=== PATIENT | female | born 1975 | race Caucasian/White ===

== ENCOUNTER 2017-02-16 08:24 | Emergency (ER) | payer OTHER, MEDICAID ==
[~2017-02-16] VITALS: Ht 170.2 cm; Wt 116.3 kg
[~2017-02-16 08:24] MED LIST: ALBU25PO2 INH; ALPR1TAB2 PO; BUPR1FIL3 PO; BUTA1CAP57 PO; CARI350T PO; CARI3CAP PO; CELE200C PO; CIPR500T87 PO; DIAZ10TA4 PO; DICY10CA3 PO; DIPH12.521 PO; DIPH25CA61 PO; DOXE10CA PO; DOXE75CA PO; DULO30CA2 PO; ENOX30SY4 SQ; ESOM40CA PO; FENO145T32 PO; FERR55TA PO; FLUO10CA13 PO; FLUO40CA9 PO; GABA100C PO; LISI-167 PO; LOSA25TA5 PO; LOVA20TA2 PO; MECL-76 PO; MECL25TA4 PO; MELO-190 PO; METF500T4 PO; METH5TAB IVPush; MONT10TA6 PO; OLAN10TA3 PO; ONDA8TAB9 PO; PRAM0.255 PO; RANI150T4 PO; TRAZ100T15 PO; WARF7.5T6 PO; ZIPR60CA2 PO; ZIPR80CA2 PO; ZIPR80CA3 PO; oxygen INH
[2017-02-16] MEDS ORDERED: SODIUM CHLORIDE FLUSH 10ML SYR IVF ONE (09:00)
[2017-02-16] MEDS ORDERED: SODIUM CHLORIDE 0.9% 1,000ML IVBOLUS ONE (09:00)
[2017-02-16] MEDS ORDERED: QUET100T4 PO (09:03)
[2017-02-16] MEDS ORDERED: CLON-365 PO (09:03)
[2017-02-16 09:35] LABS: ASPARTATE AMINO TRANSFERASE 23 U/L (15-37); BLOOD UREA NITROGEN 19 mg/dL (7-18); C-REACTIVE PROTEIN, QUANT 0.79 mg/dL (0.02-0.49)
[2017-02-16] MEDS ORDERED: ONDANSETRON 2MG/ML, 2ML ONE (11:11)
[2017-02-16] MEDS ORDERED: ONDANSETRON 2MG/ML, 2ML IVPush ONE (11:30)
[2017-02-16 12:23] LABS: DAU SCREEN DISCLAIMER
[2017-02-16 13:12] VITALS: BP 127/85
== END 2017-02-16 13:14 | disposition home or self-care (01) ==
LOC: ED 09:38
DX: L03.113 Cellulitis of right upper limb (principal); G62.9 Polyneuropathy, unspecified; I10 Essential (primary) hypertension; E11.9 Type 2 diabetes mellitus without complications; J44.9 Chronic obstructive pulmonary disease, unspecified; E78.5 Hyperlipidemia, unspecified; E78.00 Pure hypercholesterolemia, unspecified; Z88.1 Allergy status to other antibiotic agents; Z88.8 Allergy status to other drugs, medicaments and biological substances; F17.200 Nicotine dependence, unspecified, uncomplicated
CPT/HCPCS: 36415; 71010; 80053; 80307; 81003; 82550; 82607; 83605; 83735; 84145; 84443; 85025; 85651; 86140; 93005; 96361; 96374; 99285; J2405; J7030

== ENCOUNTER 2017-03-01 15:17 | Emergency (ER) | payer OTHER, MEDICAID ==
[~2017-03-01] VITALS: Ht 170.2 cm; Wt 114.4 kg
[~2017-03-01 15:17] MED LIST changes: +CLON-365 PO; +QUET100T4 PO
[2017-03-01] MEDS ORDERED: SODIUM CHLORIDE 0.9% 1,000 ML IV ONE (15:41)
[2017-03-01] MEDS ORDERED: SODIUM CHLORIDE FLUSH 10ML SYR IVF ONE (16:00)
[2017-03-01 16:30] LABS: BLOOD UREA NITROGEN 17 mg/dL (7-18)
[2017-03-01 16:35] LABS: IS PT STATUS REG ER OR PRE ER? YES
[2017-03-01] MEDS ORDERED: OXYcodone/APAP 10/325MG TABLET PO ONE (17:00)
[2017-03-01] MEDS ORDERED: KETOROLAC 60 MG/2 ML IVPush ONE (17:00)
[2017-03-01] MEDS ORDERED: OXYcodone/APAP 10/325MG TABLET ONE (18:32)
[2017-03-01] MEDS ORDERED: KETOROLAC 30 MG/1 ML ONE ×2 (18:32→18:39)
[2017-03-01] MEDS ORDERED: HYDROmorphone 1 MG/ML, 1ML IM PRN (19:00)
[2017-03-01] MEDS ORDERED: KETOROLAC 30 MG/1 ML IM ONE (19:00)
[2017-03-01 20:05] VITALS: BP 100/61
== END 2017-03-01 20:08 | disposition home or self-care (01) ==
LOC: ED 19:30
DX: R09.1 Pleurisy (principal); R11.2 Nausea with vomiting, unspecified; R53.1 Weakness; J44.9 Chronic obstructive pulmonary disease, unspecified; E78.5 Hyperlipidemia, unspecified; E11.9 Type 2 diabetes mellitus without complications; E78.00 Pure hypercholesterolemia, unspecified; F17.200 Nicotine dependence, unspecified, uncomplicated
CPT/HCPCS: 36415; 71010; 80048; 82040; 83880; 84484; 84703; 85025; 85379; 93005; 96372; 96374; 99285; J1885

== ENCOUNTER 2017-04-02 13:21 | Emergency (ER) | payer OTHER, MEDICAID ==
[~2017-04-02] VITALS: Ht 170.2 cm; Wt 114.3 kg
[2017-04-02] MEDS ORDERED: SODIUM CHLORIDE 0.9% 1,000 ML IV ONE (14:16)
[2017-04-02] MEDS ORDERED: ONDANSETRON 2MG/ML, 2ML ONE (14:21)
[2017-04-02] MEDS ORDERED: LORazepam 2 MG/ML, 1ML ONE (14:22)
[2017-04-02] MEDS ORDERED: SODIUM CHLORIDE FLUSH 10ML SYR IVF ONE (14:30)
[2017-04-02] MEDS ORDERED: LORazepam 2 MG/ML, 1ML IVPush ONE (14:30)
[2017-04-02] MEDS ORDERED: SODIUM CHLORIDE 0.9% 1,000ML IVBOLUS ONE (14:30)
[2017-04-02] MEDS ORDERED: ONDANSETRON 2MG/ML, 2ML IVPush ONE (14:30)
[2017-04-02 15:01] LABS: ASPARTATE AMINO TRANSFERASE 16 U/L (15-37); BLOOD UREA NITROGEN 18 mg/dL (7-18)
[2017-04-02 16:06] VITALS: BP 102/60
== END 2017-04-02 16:09 | disposition home or self-care (01) ==
LOC: ED 15:40
DX: N28.9 Disorder of kidney and ureter, unspecified (principal); I10 Essential (primary) hypertension; J44.9 Chronic obstructive pulmonary disease, unspecified; E78.00 Pure hypercholesterolemia, unspecified; E11.9 Type 2 diabetes mellitus without complications; J45.909 Unspecified asthma, uncomplicated; E66.9 Obesity, unspecified; F17.200 Nicotine dependence, unspecified, uncomplicated; Z90.49 Acquired absence of other specified parts of digestive tract; Z90.710 Acquired absence of both cervix and uterus; Z86.718 Personal history of other venous thrombosis and embolism; Z88.1 Allergy status to other antibiotic agents; Z88.8 Allergy status to other drugs, medicaments and biological substances
CPT/HCPCS: 36415; 71010; 80053; 81003; 83605; 84145; 85025; 96361; 96374; 96375; 99285; J2060; J2405; J7030

== ENCOUNTER → 2017-04-30 | Outpatient (CLI) | payer OTHER, MEDICAID ==
[~2017-04-30] VITALS: Ht 170.2 cm; Wt 114.0 kg
[~2017-04-30] MED LIST changes: +DESMOPRESSIN IVPB ONE; +MAGN400T36 PO; +SODIUM CHLORIDE 0.9% IVPB ONE
[2017-04-30 15:56] VITALS: BP 123/80
[2017-04-30 16:27] LABS: DAU SCREEN DISCLAIMER
[2017-04-30 16:49] LABS: HEMATOCRIT 39.1 % (34.6-47.8); HEMOGLOBIN 12.9 g/dL (11.7-16.4); WHITE BLOOD COUNT 7.2 x10^3/uL (3.4-10)
[2017-04-30 17:07] LABS: ASPARTATE AMINO TRANSFERASE 15 U/L (15-37); BLOOD UREA NITROGEN 15 mg/dL (7-18)
== END ==
LOC: SDC 08:00 → OR 15:07 → EDSTATUS 17:00
PROVIDERS: ATTEND Orthopaedic Surgery
DX: Z01.812 Encounter for preprocedural laboratory examination (principal); G56.03 Carpal tunnel syndrome, bilateral upper limbs; Z53.9 Procedure and treatment not carried out, unspecified reason; M65.331 Trigger finger, right middle finger; M65.332 Trigger finger, left middle finger
CPT/HCPCS: 36415; 80053; 80307; 85025; 85610; 85730; J2597

== ENCOUNTER 2017-06-12 01:08 | Emergency (ER) | payer MEDICAID, OTHER ==
[~2017-06-12] VITALS: Ht 170.2 cm; Wt 116.8 kg
[~2017-06-12 01:08] MED LIST changes: -DESMOPRESSIN IVPB ONE; -MELO-190 PO; +MELO7.5T31 PO; -SODIUM CHLORIDE 0.9% IVPB ONE
[2017-06-12 01:09] VITALS: BP 151/82
[2017-06-12] MEDS ORDERED: LIDOCAINE 1%, 20ML SQ ONE (02:00)
[2017-06-12] MEDS ORDERED: LIDOCAINE 1%, 20ML ONE (02:03)
== END 2017-06-12 02:41 | disposition home or self-care (01) ==
LOC: ED 02:03
DX: L02.414 Cutaneous abscess of left upper limb (principal); J44.9 Chronic obstructive pulmonary disease, unspecified; E78.5 Hyperlipidemia, unspecified; E11.9 Type 2 diabetes mellitus without complications; I10 Essential (primary) hypertension; E78.00 Pure hypercholesterolemia, unspecified; Z86.718 Personal history of other venous thrombosis and embolism; Z86.711 Personal history of pulmonary embolism; Z90.710 Acquired absence of both cervix and uterus; Z90.49 Acquired absence of other specified parts of digestive tract; Z88.8 Allergy status to other drugs, medicaments and biological substances; Z88.0 Allergy status to penicillin
CPT/HCPCS: 10060; 99283

== ENCOUNTER 2017-06-14 17:59 | Emergency (ER) | payer OTHER ==
[~2017-06-14] VITALS: Ht 170.2 cm; Wt 119.0 kg
[2017-06-14 18:02] VITALS: BP 125/79
[2017-06-14] MEDS ORDERED: HYDROcodone/APAP 5/325 TABLET ONE (18:27)
[2017-06-14] MEDS ORDERED: HYDROcodone/APAP 5/325 TABLET PO ONE (18:30)
== END 2017-06-14 18:48 | disposition home or self-care (01) ==
LOC: ED 18:42
DX: Z48.01 Encounter for change or removal of surgical wound dressing (principal); J44.9 Chronic obstructive pulmonary disease, unspecified; F31.9 Bipolar disorder, unspecified; I10 Essential (primary) hypertension; E78.5 Hyperlipidemia, unspecified; E78.00 Pure hypercholesterolemia, unspecified; E11.9 Type 2 diabetes mellitus without complications; Z86.718 Personal history of other venous thrombosis and embolism; Z88.0 Allergy status to penicillin; Z88.1 Allergy status to other antibiotic agents; Z88.8 Allergy status to other drugs, medicaments and biological substances; Z88.5 Allergy status to narcotic agent
CPT/HCPCS: 99283

== ENCOUNTER 2017-07-24 17:08 | Emergency (ER) | payer OTHER, MEDICAID ==
[~2017-07-24] VITALS: Ht 170.2 cm; Wt 118.0 kg
[2017-07-24] MEDS ORDERED: ASPIRIN 81 MG TABLET CHEW PO ONE (17:30)
[2017-07-24] MEDS ORDERED: SODIUM CHLORIDE FLUSH 10ML SYR IVF ONE (17:30)
[2017-07-24 17:50] LABS: HEMATOCRIT 36.4 % (34.6-47.8); WHITE BLOOD COUNT 6.3 x10^3/uL (3.4-10)
[2017-07-24 18:03] LABS: BLOOD UREA NITROGEN 14 mg/dL (7-18)
[2017-07-24 18:09] LABS: IS PT STATUS REG ER OR PRE ER? YES
[2017-07-24] MEDS ORDERED: MONT10TA9 PO (18:25)
[2017-07-24] MEDS ORDERED: CLON-365 PO (18:25)
[2017-07-24] MEDS ORDERED: RANI150T4 PO (18:25)
[2017-07-24] MEDS ORDERED: QUET200T PO (18:25)
[2017-07-24] MEDS ORDERED: QUET100T PO (18:25)
[2017-07-24] MEDS ORDERED: BREX2TAB PO (18:25)
[2017-07-24] MEDS ORDERED: DIPH25CA61 PO (18:25)
[2017-07-24] MEDS ORDERED: ALBU8.5H8 INH (18:25)
[2017-07-24] MEDS ORDERED: DICY10CA3 PO (18:25)
[2017-07-24] MEDS ORDERED: LISI-167 PO (18:25)
[2017-07-24] MEDS ORDERED: POTA99TA2 PO (18:25)
[2017-07-24] MEDS ORDERED: GABA600T2 PO (18:25)
[2017-07-24] MEDS ORDERED: MAGN250T8 PO (18:25)
[2017-07-24] MEDS ORDERED: ESOM40CA PO (18:25)
[2017-07-24] MEDS ORDERED: ONDA4TAB10 PO (18:25)
[2017-07-24] MEDS ORDERED: LOVA20TA2 PO (18:25)
[2017-07-24] MEDS ORDERED: PRAM0.255 PO (18:25)
[2017-07-24 19:26] VITALS: BP 120/76
== END 2017-07-24 19:28 | disposition home or self-care (01) ==
LOC: ED 17:38
DX: R07.89 Other chest pain (principal); R06.02 Shortness of breath; E11.9 Type 2 diabetes mellitus without complications; J44.9 Chronic obstructive pulmonary disease, unspecified; I10 Essential (primary) hypertension; F31.9 Bipolar disorder, unspecified; E66.9 Obesity, unspecified; E78.00 Pure hypercholesterolemia, unspecified
CPT/HCPCS: 36415; 71010; 80048; 82040; 84484; 85025; 93005; 99285

== ENCOUNTER 2017-08-14 15:26 | Inpatient (IN) | payer OTHER, MEDICAID ==
[~2017-08-14] VITALS: Ht 170.2 cm; Wt 120.9 kg
[~2017-08-14 15:26] MED LIST changes: +ALBU8.5H8 INH; +BREX2TAB PO; +GABA600T2 PO; +MAGN250T8 PO; +MONT10TA9 PO; +ONDA4TAB10 PO; +POTA99TA2 PO; +QUET100T PO; +QUET200T PO
[2017-08-14] MEDS ORDERED: CHARCOAL/SORBITOL 50 GM/240 ML ONE (15:39)
[2017-08-14] MEDS ORDERED: CHARCOAL/SORBITOL 50 GM/240 ML PO ONE (16:00)
[2017-08-14 16:14] LABS: HEMATOCRIT 40.9 % (34.6-47.8); HEMOGLOBIN 13.6 g/dL (11.7-16.4); WHITE BLOOD COUNT 5.3 x10^3/uL (3.4-10)
[2017-08-14 16:20] LABS: BLOOD UREA NITROGEN 20 mg/dL (7-18)
[2017-08-14 16:23] LABS: ASPARTATE AMINO TRANSFERASE 13 U/L (15-37)
[2017-08-14] MEDS ORDERED: FENO48TA5 PO (16:23)
[2017-08-14 16:24] LABS: ACETAMINOPHEN < 2 mcg/mL (10-30)
[2017-08-14] MEDS ORDERED: TRAZ100T15 PO (16:26)
[2017-08-14] MEDS ORDERED: TIOT4MIS5 INH (16:28)
[2017-08-14] MEDS ORDERED: ALBU18HF INH (16:29)
[2017-08-14] MEDS ORDERED: BUDE10.2 INH (16:30)
[2017-08-14] MEDS ORDERED: ONDANSETRON ODT 4 MG ONE (17:53)
[2017-08-14] MEDS ORDERED: HEPARIN 5,000 UNITS/ML, 1ML SQ SCH (18:00)
[2017-08-14] MEDS ORDERED: ONDANSETRON ODT 4 MG PO ONE (18:00)
[2017-08-14 18:24] LABS: IS PT STATUS REG ER OR PRE ER? YES
[2017-08-14] MEDS ORDERED: PRAMIPEXOLE 0.25MG TABLET PO PRN (19:00)
[2017-08-14] MEDS ORDERED: ONDANSETRON 0.8 MG/ML ORAL SOL PO SCH (19:00)
[2017-08-14] MEDS ORDERED: ALBUTEROL SULFATE 2.5 MG/3 ML HHN PRN ×2 (20:00)
[2017-08-14] MEDS: IPRATROPIUM 0.5 MG/2.5 ML INHA HHN SCH (20:00)
[2017-08-14] MEDS ORDERED: TEMPLATE NON-FORMULARY MED. (Ranitidine Hcl** 150 MG) PO SCH (21:00)
[2017-08-14] MEDS ORDERED: ALBUTEROL/IPRATROPIUM 2.5MG/0.5MG, 3 ML NPPB PRN (21:30)
[2017-08-14] MEDS: SODIUM CHLORIDE 0.9% 1,000 ML IV SCH (21:38)
[2017-08-14] MEDS: FAMOTIDINE 20 MG TABLET PO SCH (21:39)
[2017-08-14] MEDS: PANTOPROZOLE 40MG TABLET PO SCH (21:39)
[2017-08-14] MEDS: LOVASTATIN 40 MG TABLET PO SCH (21:40)
[2017-08-14] MEDS: ACETAMINOPHEN 325 MG TABLET PO PRN (21:40)
[2017-08-14 21:47] VITALS: BP 128/85
[2017-08-14 23:22] LABS: IS PT STATUS REG ER OR PRE ER? NO
[2017-08-15] MEDS: IPRATROPIUM 0.5 MG/2.5 ML INHA HHN SCH ×2 (02:00→08:30)
[2017-08-15 02:10] VITALS: BP 110/70
[2017-08-15] MEDS: ONDANSETRON ODT 4 MG PO SCH ×4 (04:10→23:16)
[2017-08-15 04:14] LABS: DAU SCREEN DISCLAIMER
[2017-08-15] MEDS: SODIUM CHLORIDE 0.9% 1,000 ML IV SCH (05:53)
[2017-08-15 06:04] LABS: HEMATOCRIT 34.9 % (34.6-47.8); HEMOGLOBIN 11.9 g/dL (11.7-16.4); WHITE BLOOD COUNT 5.2 x10^3/uL (3.4-10)
[2017-08-15 06:11] LABS: BLOOD UREA NITROGEN 23 mg/dL (7-18)
[2017-08-15 06:27] LABS: DIFF TOTAL CELLS COUNTED 100 CELL DIFF
[2017-08-15 06:28] LABS: VERIFY COUNTS? YES
[2017-08-15 06:33] VITALS: BP 109/67
[2017-08-15] MEDS: NICOTINE 21 MG/24 HR PATCH.TD24 TD SCH (09:00)
[2017-08-15] MEDS ORDERED: FENOFIBRATE 54 MG TABLET PO SCH (09:00)
[2017-08-15] MEDS: FLUTICASONE/VILANTEROL 200-25MCG/INH INH SCH (09:21)
[2017-08-15] MEDS: FAMOTIDINE 20 MG TABLET PO SCH ×2 (09:22→20:23)
[2017-08-15] MEDS: MONTELUKAST 10 MG TABLET PO SCH (09:22)
[2017-08-15] MEDS: IBUPROFEN 200 MG TABLET PO PRN (09:22)
[2017-08-15] MEDS: PANTOPROZOLE 40MG TABLET PO SCH ×2 (09:22→17:15)
[2017-08-15] MEDS: MAGNESIUM OXIDE 400 MG TABLET PO SCH (09:22)
[2017-08-15 11:32] LABS: IS PT STATUS REG ER OR PRE ER? NO
[2017-08-15 12:07] VITALS: BP 99/61
[2017-08-15] MEDS ORDERED: NAPROXEN 250 MG TABLET PO ONE (15:00)
[2017-08-15 18:58] VITALS: BP 115/75
[2017-08-15] MEDS: FENOFIBRATE 54 MG TABLET PO SCH (20:23)
[2017-08-15] MEDS: LOVASTATIN 40 MG TABLET PO SCH (20:23)
[2017-08-15] MEDS: ACETAMINOPHEN 325 MG TABLET PO PRN (21:24)
[2017-08-15] MEDS: GABAPENTIN 300 MG CAPSULE PO SCH (21:24)
[2017-08-16 01:43] VITALS: BP 107/71
[2017-08-16 05:34] LABS: HEMATOCRIT 36.4 % (34.6-47.8); HEMOGLOBIN 12.1 g/dL (11.7-16.4); WHITE BLOOD COUNT 5.6 x10^3/uL (3.4-10)
[2017-08-16 05:44] LABS: ASPARTATE AMINO TRANSFERASE 9 U/L (15-37); BLOOD UREA NITROGEN 19 mg/dL (7-18)
[2017-08-16 06:30] VITALS: BP 107/69
[2017-08-16] MEDS ORDERED: IPRATROPIUM 0.5 MG/2.5 ML INHA HHN SCH (08:00)
[2017-08-16] MEDS: NICOTINE 21 MG/24 HR PATCH.TD24 TD SCH (09:00)
[2017-08-16] MEDS: MONTELUKAST 10 MG TABLET PO SCH (09:24)
[2017-08-16] MEDS: GABAPENTIN 300 MG CAPSULE PO SCH ×3 (09:24→20:26)
[2017-08-16] MEDS: FAMOTIDINE 20 MG TABLET PO SCH ×2 (09:24→20:26)
[2017-08-16] MEDS: FLUTICASONE/VILANTEROL 200-25MCG/INH INH SCH (09:24)
[2017-08-16] MEDS: MAGNESIUM OXIDE 400 MG TABLET PO SCH (09:24)
[2017-08-16] MEDS: PANTOPROZOLE 40MG TABLET PO SCH ×2 (09:24→16:26)
[2017-08-16] MEDS: ACETAMINOPHEN 325 MG TABLET PO PRN ×2 (09:24→20:26)
[2017-08-16] MEDS: ONDANSETRON ODT 4 MG PO SCH ×3 (09:25→16:26)
[2017-08-16 12:05] VITALS: BP 113/76
[2017-08-16 19:29] VITALS: BP 109/73
[2017-08-16] MEDS: FENOFIBRATE 54 MG TABLET PO SCH (20:26)
[2017-08-16] MEDS: LOVASTATIN 40 MG TABLET PO SCH (20:26)
[2017-08-16 23:33] VITALS: BP 103/69
[2017-08-17] MEDS: ONDANSETRON ODT 4 MG PO SCH ×4 (00:36→23:57)
[2017-08-17 03:11] VITALS: BP 101/67
[2017-08-17 07:25] VITALS: BP 105/66
[2017-08-17] MEDS: FLUTICASONE/VILANTEROL 200-25MCG/INH INH SCH (08:27)
[2017-08-17] MEDS: MAGNESIUM OXIDE 400 MG TABLET PO SCH (08:27)
[2017-08-17] MEDS: GABAPENTIN 300 MG CAPSULE PO SCH ×3 (08:27→19:59)
[2017-08-17] MEDS: FAMOTIDINE 20 MG TABLET PO SCH ×2 (08:27→19:58)
[2017-08-17] MEDS: MONTELUKAST 10 MG TABLET PO SCH (08:27)
[2017-08-17] MEDS: PANTOPROZOLE 40MG TABLET PO SCH ×2 (08:27→16:01)
[2017-08-17] MEDS: NICOTINE 21 MG/24 HR PATCH.TD24 TD SCH ×2 (10:57→16:00)
[2017-08-17 13:45] VITALS: BP 111/75
[2017-08-17 19:00] VITALS: BP 116/79
[2017-08-17] MEDS: LOVASTATIN 40 MG TABLET PO SCH (19:58)
[2017-08-17] MEDS: ACETAMINOPHEN 325 MG TABLET PO PRN (19:59)
[2017-08-17] MEDS: FENOFIBRATE 54 MG TABLET PO SCH (19:59)
[2017-08-17] MEDS: IBUPROFEN 200 MG TABLET PO PRN (23:56)
[2017-08-18 00:04] VITALS: BP 117/78
[2017-08-18] MEDS: ACETAMINOPHEN 325 MG TABLET PO PRN ×2 (05:16→12:36)
[2017-08-18] MEDS: ONDANSETRON ODT 4 MG PO SCH ×2 (05:17→17:14)
[2017-08-18 06:28] VITALS: BP 119/74
[2017-08-18] MEDS: NICOTINE 21 MG/24 HR PATCH.TD24 TD SCH (08:45)
[2017-08-18] MEDS: MONTELUKAST 10 MG TABLET PO SCH (08:49)
[2017-08-18] MEDS: IBUPROFEN 200 MG TABLET PO PRN (08:49)
[2017-08-18] MEDS: GABAPENTIN 300 MG CAPSULE PO SCH ×2 (08:50→17:14)
[2017-08-18] MEDS: FAMOTIDINE 20 MG TABLET PO SCH (08:50)
[2017-08-18] MEDS: MAGNESIUM OXIDE 400 MG TABLET PO SCH (08:51)
[2017-08-18] MEDS: FLUTICASONE/VILANTEROL 200-25MCG/INH INH SCH (08:52)
[2017-08-18] MEDS: PANTOPROZOLE 40MG TABLET PO SCH ×2 (09:00→17:14)
[2017-08-18] MEDS ORDERED: GLYCERIN ADULT SUPP PR ONE (09:30)
[2017-08-18] MEDS ORDERED: DOCUSATE 50 MG/5 ML, 10ML UDC PO PRN (13:00)
[2017-08-18 14:01] VITALS: BP 139/89
== END 2017-08-18 17:49 | DRG 918 ==
LOC: ED 15:33 → EDIP 17:07 → OBSVTOIN 17:57 → 4EST 19:26
PROVIDERS: ADMIT Internal Medicine; ATTEND Internal Medicine
DX: T43.592A Poisoning by other antipsychotics and neuroleptics, intentional self-harm, initial encounter (principal); D68.0 Von Willebrand disease; E11.40 Type 2 diabetes mellitus with diabetic neuropathy, unspecified; F31.9 Bipolar disorder, unspecified; F17.210 Nicotine dependence, cigarettes, uncomplicated; G89.29 Other chronic pain; K21.9 Gastro-esophageal reflux disease without esophagitis; E78.5 Hyperlipidemia, unspecified; E78.00 Pure hypercholesterolemia, unspecified; F12.90 Cannabis use, unspecified, uncomplicated; M54.12 Radiculopathy, cervical region; M54.9 Dorsalgia, unspecified; R00.0 Tachycardia, unspecified; F41.9 Anxiety disorder, unspecified; G43.909 Migraine, unspecified, not intractable, without status migrainosus; I10 Essential (primary) hypertension; J44.9 Chronic obstructive pulmonary disease, unspecified; Z80.0 Family history of malignant neoplasm of digestive organs; Z81.8 Family history of other mental and behavioral disorders; Z82.49 Family history of ischemic heart disease and other diseases of the circulatory system; Z86.711 Personal history of pulmonary embolism; Z87.442 Personal history of urinary calculi; Z90.710 Acquired absence of both cervix and uterus; Z90.89 Acquired absence of other organs; Z88.1 Allergy status to other antibiotic agents; Z88.5 Allergy status to narcotic agent; Z88.8 Allergy status to other drugs, medicaments and biological substances; Z79.899 Other long term (current) drug therapy; Z91.5 Personal history of self-harm; T42.4X2A Poisoning by benzodiazepines, intentional self-harm, initial encounter; T43.212A Poisoning by selective serotonin and norepinephrine reuptake inhibitors, intentional self-harm, initial encounter
CPT/HCPCS: 36415; 71010; 80048; 80053; 80307; 80329; 83036; 83735; 84100; 84443; 84484; 85025; 85379; 85610; 85730; 93005; 94640; 99285; J1644; J7613; J7644; Q0162; G0378; G0479; G0480; J7030

== ENCOUNTER 2018-02-17 11:48 | Emergency (ER) | payer OTHER, MEDICAID ==
[~2018-02-17] VITALS: Ht 170.2 cm; Wt 116.1 kg
[~2018-02-17 11:48] MED LIST changes: +ALBU18HF INH; +BUDE10.2 INH; +FENO48TA5 PO; -METH5TAB IVPush; +TIOT4MIS5 INH; +WARF7.5T46 PO; -WARF7.5T6 PO; +[UNRECOGNIZED DRUG - CODE] IVPush
[2018-02-17] MEDS ORDERED: OMEP10CA4 PO (13:32)
[2018-02-17] MEDS ORDERED: CLON1TAB PO (13:32)
[2018-02-17] MEDS ORDERED: QUET400T4 PO (13:33)
[2018-02-17] MEDS ORDERED: TRAZ100T15 PO (13:33)
[2018-02-17] MEDS ORDERED: ONDA4TAB10 PO (13:41)
[2018-02-17] MEDS ORDERED: ALBU8.5H8 INH (13:42)
[2018-02-17] MEDS ORDERED: KETOROLAC 30 MG/1 ML IM ONE (14:00)
[2018-02-17 14:12] LABS: MEAN CORPUSCULAR HEMOGLOBIN 28.3 pg (27.0-34.8); MEAN CORPUSCULAR HGB CONC 33.3 g/dL (32.4-35.8); MEAN CORPUSCULAR VOLUME 84.9 fL (80-100); MEAN PLATELET VOLUME 8.4 fL (7.4-10.4); PLATELET COUNT 322 x10^3/uL (130-400); RED BLOOD COUNT 4.52 x10^6/uL (3.82-5.3)
[2018-02-17] MEDS ORDERED: KETOROLAC 30 MG/1 ML ONE (14:17)
[2018-02-17 14:22] LABS: ALBUMIN 3.9 g/dL (3.4-5.0); ANION GAP 7 mmol/L (5-15); CALCIUM 8.7 mg/dL (8.5-10.1); CHLORIDE 107 mmol/L (98-107)
[2018-02-17 14:25] LABS: ALANINE AMINOTRANSFERASE 33 U/L (12-78); ALKALINE PHOSPHATASE 82 U/L (45-117); BILIRUBIN,TOTAL 0.3 mg/dL (0.2-1.0); CREATININE 0.91 mg/dL (0.55-1.02); TOTAL PROTEIN 7.1 g/dL (6.4-8.2)
[2018-02-17 14:32] LABS: MICROSCOPIC NOT IND
[2018-02-17 14:34] LABS: CULTURE INDICATED? NO
[2018-02-17 14:43] LABS: MD YES
[2018-02-17 14:45] LABS: EOS#(MANUAL) 0.06 x10^3/uL (0.0-0.4); EOS% (MANUAL) 1 % (1-7); LYMPH#(MANUAL) 2.17 x10^3/uL (1-3.4); LYMPHS% (MANUAL) 35 % (22-44); MONOS#(MANUAL) 0.19 x10^3/uL (0.3-2.7); MONOS% (MANUAL) 3 % (2-9); SEG#(MANUAL) 3.78 x10^3/uL (1.8-6.8); SEGS% (MANUAL) 61 % (42-75)
[2018-02-17 14:46] LABS: <PLATELET ESTIMATE> ADEQUATE; <PLT MORPHOLOGY> NORMAL PLT MORPH; <RBC MORPHOLOGY> NORMAL
[2018-02-17 16:02] VITALS: BP 107/74
== END 2018-02-17 16:04 | disposition home or self-care (01) ==
LOC: ED 16:00
DX: B02.29 Other postherpetic nervous system involvement (principal); B02.9 Zoster without complications; R07.89 Other chest pain; J44.9 Chronic obstructive pulmonary disease, unspecified; F41.9 Anxiety disorder, unspecified; G43.909 Migraine, unspecified, not intractable, without status migrainosus; E78.00 Pure hypercholesterolemia, unspecified; F31.9 Bipolar disorder, unspecified; I10 Essential (primary) hypertension; E11.40 Type 2 diabetes mellitus with diabetic neuropathy, unspecified; Z86.711 Personal history of pulmonary embolism; Z86.718 Personal history of other venous thrombosis and embolism
CPT/HCPCS: 36415; 71046; 80053; 81003; 85025; 93005; 96372; 99285; J1885

== ENCOUNTER 2018-07-14 18:19 | Emergency (ER) | payer OTHER, MEDICAID ==
[~2018-07-14] VITALS: Ht 170.2 cm; Wt 110.9 kg
[~2018-07-14 18:19] MED LIST changes: -CLON-365 PO; +CLON1TAB PO; +CLON1TAB4 PO; -LOSA25TA5 PO; +LOSA25TA6 PO; +METF500T17 PO; -METF500T4 PO; +OMEP10CA4 PO; +QUET400T4 PO; +TRAZ-137 PO; -TRAZ100T15 PO
[2018-07-14] MEDS ORDERED: HYDROmorphone 2 MG/ML, 1ML IVPush PRN (19:00)
[2018-07-14] MEDS ORDERED: DIPHENHYDRAMINE 50 MG/ML, 1ML ONE (19:15)
[2018-07-14] MEDS ORDERED: ONDANSETRON ODT 4 MG ONE (19:15)
[2018-07-14] MEDS ORDERED: HYDROmorphone 2 MG/ML, 1ML ONE (19:16)
[2018-07-14 19:22] LABS: BASOPHILS # (AUTO) 0.04 x10^3/uL (0-0.1); BASOPHILS % (AUTO) 1 % (0-1); EOSINOPHILS % (AUTO) 0 % (1-7); LYMPHOCYTES # (AUTO) 2.93 x10^3/uL (1-3.4); LYMPHOCYTES % (AUTO) 37 % (22-44); MD NO; MEAN CORPUSCULAR HEMOGLOBIN 28.2 pg (27.0-34.8); MEAN CORPUSCULAR HGB CONC 32.8 g/dL (32.4-35.8); MEAN CORPUSCULAR VOLUME 85.9 fL (80-100); MEAN PLATELET VOLUME 8.1 fL (7.4-10.4); MONOCYTES # (AUTO) 0.33 x10^3/uL (0.2-0.8); MONOCYTES % (AUTO) 4 % (2-9); NEUTROPHILS # (AUTO) 4.54 x10^3/uL (1.8-6.8); NEUTROPHILS % (AUTO) 58 % (42-75); PLATELET COUNT 299 x10^3/uL (130-400); RED BLOOD COUNT 4.12 x10^6/uL (3.82-5.3); RED CELL DISTRIBUTION WIDTH 15.2 % (9.6-15.2)
[2018-07-14 19:28] LABS: MICROSCOPIC NOT IND
[2018-07-14] MEDS ORDERED: ONDANSETRON ODT 4 MG PO ONE (19:30)
[2018-07-14] MEDS ORDERED: PROMETHAZINE 25 MG/ML, 1ML IM ONE (19:30)
[2018-07-14] MEDS ORDERED: DIPHENHYDRAMINE 50 MG/ML, 1ML IVPush ONE (19:30)
[2018-07-14 19:33] LABS: ALANINE AMINOTRANSFERASE 25 U/L (12-78); ALBUMIN 3.8 g/dL (3.4-5.0); ANION GAP 8 mmol/L (5-15); CHLORIDE 109 mmol/L (98-107); CREATININE 0.83 mg/dL (0.55-1.02)
[2018-07-14 19:36] LABS: ALKALINE PHOSPHATASE 71 U/L (45-117); BILIRUBIN,TOTAL 0.3 mg/dL (0.2-1.0); TOTAL PROTEIN 7.1 g/dL (6.4-8.2)
[2018-07-14 19:47] LABS: CULTURE INDICATED? NO
[2018-07-14 20:19] VITALS: BP 135/76
[2018-07-14] MEDS ORDERED: SODIUM CHLORIDE 0.9%, 500ML IVBOLUS ONE (20:30)
== END 2018-07-14 21:15 | disposition home or self-care (01) ==
LOC: ED 20:12
DX: M79.1 Myalgia (principal); K04.7 Periapical abscess without sinus; R10.84 Generalized abdominal pain; J44.9 Chronic obstructive pulmonary disease, unspecified; E78.5 Hyperlipidemia, unspecified; E11.9 Type 2 diabetes mellitus without complications; I10 Essential (primary) hypertension; F31.9 Bipolar disorder, unspecified; F17.200 Nicotine dependence, unspecified, uncomplicated; Z86.718 Personal history of other venous thrombosis and embolism
CPT/HCPCS: 36415; 70486; 71045; 80053; 81003; 84703; 85025; 96374; 96375; 99285; J1170; J1200; J7040; Q0162

== ENCOUNTER 2019-01-27 14:31 | Emergency (ER) | payer OTHER, MEDICAID ==
[~2019-01-27] VITALS: Ht 170.2 cm; Wt 112.8 kg
[~2019-01-27 14:31] MED LIST changes: +CLON1TAB11 PO; -CLON1TAB4 PO; -GABA600T2 PO; +GABA600T7 PO; +LOSA25TA25 PO; -LOSA25TA6 PO
[2019-01-27 14:34] VITALS: BP 147/89
[2019-01-27 14:52] LABS: BASOPHILS # (AUTO) 0.02 x10^3/uL (0-0.1); BASOPHILS % (AUTO) 0 % (0-1); EOSINOPHILS % (AUTO) 0 % (1-7); LYMPHOCYTES # (AUTO) 2.01 x10^3/uL (1-3.4); LYMPHOCYTES % (AUTO) 30 % (22-44); MD NO; MEAN CORPUSCULAR HEMOGLOBIN 27.7 pg (27.0-34.8); MEAN CORPUSCULAR HGB CONC 32.4 g/dL (32.4-35.8); MEAN CORPUSCULAR VOLUME 85.3 fL (80-100); MEAN PLATELET VOLUME 7.9 fL (7.4-10.4); MONOCYTES # (AUTO) 0.25 x10^3/uL (0.2-0.8); MONOCYTES % (AUTO) 4 % (2-9); NEUTROPHILS # (AUTO) 4.47 x10^3/uL (1.8-6.8); NEUTROPHILS % (AUTO) 66 % (42-75); PLATELET COUNT 300 x10^3/uL (130-400); RED BLOOD COUNT 4.28 x10^6/uL (3.82-5.3); RED CELL DISTRIBUTION WIDTH 16.7 % (9.6-15.2)
[2019-01-27 15:01] LABS: ALBUMIN 4.1 g/dL (3.4-5.0); ANION GAP 5 mmol/L (5-15); CALCIUM 8.6 mg/dL (8.5-10.1); CHLORIDE 111 mmol/L (98-107)
[2019-01-27 15:08] LABS: HCT (SEDRATE) 36.5 % (34.6-47.8)
--- NOTE | 2019-01-27 16:00 | NUR ---
Pt c/o pain/swelling on R side of head x1 day. Pt has had this before, Pt states was seen at [facility] for same complaint. Reports "i think i have temporal arteritis". Texting laughing w/ spouse
[2019-01-27] MEDS ORDERED: OXYcodone/APAP 10/325MG TABLET PO ONE (16:30)
[2019-01-27] MEDS ORDERED: OXYcodone/APAP 10/325MG TABLET ONE (17:11)
--- NOTE | 2019-01-27 17:15 | NUR ---
Patient discharged immediately after verse writer administered 10mg of percocet. Patient not narcotic naive and will be accompanied by her spouse for the rest of the day. Provider aware
== END 2019-01-27 17:29 ==
LOC: ED 17:23
DX: G44.219 Episodic tension-type headache, not intractable (principal); I10 Essential (primary) hypertension; J44.9 Chronic obstructive pulmonary disease, unspecified; F41.1 Generalized anxiety disorder; E78.5 Hyperlipidemia, unspecified; E11.9 Type 2 diabetes mellitus without complications; E78.00 Pure hypercholesterolemia, unspecified; F31.9 Bipolar disorder, unspecified; G89.29 Other chronic pain; Z90.89 Acquired absence of other organs; Z90.49 Acquired absence of other specified parts of digestive tract; Z90.710 Acquired absence of both cervix and uterus; Z86.718 Personal history of other venous thrombosis and embolism
CPT/HCPCS: 36415; 80048; 82040; 85025; 85651; 99283

== ENCOUNTER 2019-10-29 18:50 | Emergency (ER) | payer OTHER, MEDICAID ==
[~2019-10-29] VITALS: Ht 170.2 cm; Wt 114.9 kg
[~2019-10-29 18:50] MED LIST changes: +ACET-1600 PO; +ESOM20CA PO; +FENO48TA17 PO; -FENO48TA5 PO; +LAMO100T5 PO; +MELA1TAB8 PO; +NAPR-850 PO; -OMEP10CA4 PO; +OMEP10CA5 PO; +POTA2TAB8 PO; +QUET200T4 PO; +magnesium PO
[2019-10-29 19:09] VITALS: BP 187/101
--- NOTE | 2019-10-29 20:23 | NUR ---
NIL X 1
[2019-10-29] MEDS ORDERED: OXYcodone/APAP 5/325MG TABLET ONE (20:45)
[2019-10-29] MEDS ORDERED: KETOROLAC 30 MG/1 ML ONE (20:45)
[2019-10-29] MEDS ORDERED: ONDANSETRON ODT 4 MG ONE (20:45)
--- NOTE | 2019-10-29 20:50 | NUR ---
medicated per emar
[2019-10-29] MEDS ORDERED: ONDANSETRON ODT 4 MG PO ONE (21:00)
[2019-10-29] MEDS ORDERED: OXYcodone/APAP 5/325MG TABLET PO ONE (21:00)
[2019-10-29] MEDS ORDERED: KETOROLAC 30 MG/1 ML IM ONE (21:00)
== END 2019-10-29 21:51 | disposition home or self-care (01) ==
LOC: ED 21:45
DX: K08.89 Other specified disorders of teeth and supporting structures (principal); E11.9 Type 2 diabetes mellitus without complications; J44.9 Chronic obstructive pulmonary disease, unspecified; E78.00 Pure hypercholesterolemia, unspecified; E78.5 Hyperlipidemia, unspecified; G43.909 Migraine, unspecified, not intractable, without status migrainosus; G44.209 Tension-type headache, unspecified, not intractable; Z72.9 Problem related to lifestyle, unspecified; Z86.718 Personal history of other venous thrombosis and embolism
CPT/HCPCS: 96372; 99283; J1885; Q0162

== ENCOUNTER 2020-04-21 10:13 | Emergency (ER) | payer OTHER, MEDICAID ==
[~2020-04-21] VITALS: Ht 170.2 cm; Wt 136.1 kg
[~2020-04-21 10:13] MED LIST changes: +FENO48TA10 PO; -FENO48TA17 PO; +MECL-101 PO; -MECL25TA4 PO; +MONT10TA11 PO; -MONT10TA9 PO; -TRAZ-137 PO; +TRAZ-175 PO
--- NOTE | 2020-04-21 11:35 | NUR ---
[employer]: PT TO ROOM FROM [facility] AL[facility]O
--- NOTE | 2020-04-21 11:45 | NUR ---
STATES SHE FELL OFF 2ND STEP OF PORCH, LANDED ON LT SHOULDER ON BRICKS STEPS ON SUNDAY MORNING. SUNDAY, EXPERIENCED PAIN TO LT NECK. DENIES HITTING HEAD. TYLENOL 1000MG AT 0800 TODAY. DENIES NUMBNESS/TINGLING TO LUE. + ROM HAND & ELBOW. UNABLE TO LIFT ARM AT SHOULDER R/T PAIN. RT HANDEDNESS. PT'S SPOUSE IN ROOM.
[2020-04-21] MEDS ORDERED: OXYcodone/APAP 5/325MG TABLET ONE (11:59)
[2020-04-21] MEDS ORDERED: OXYcodone/APAP 5/325MG TABLET PO ONE (12:00)
--- NOTE | 2020-04-21 12:01 | NUR ---
PERCOCET GIVEN PER EMAR
[2020-04-21] MEDS ORDERED: PRAZ5CAP2 PO (12:07)
[2020-04-21] MEDS ORDERED: LAMO200T3 PO (12:07)
[2020-04-21 12:08] VITALS: BP 114/77
== END 2020-04-21 15:08 | disposition home or self-care (01) ==
LOC: ED 12:30
DX: S29.012A Strain of muscle and tendon of back wall of thorax, initial encounter (principal); S16.1XXA Strain of muscle, fascia and tendon at neck level, initial encounter; S40.012A Contusion of left shoulder, initial encounter; F17.200 Nicotine dependence, unspecified, uncomplicated; I10 Essential (primary) hypertension; E11.9 Type 2 diabetes mellitus without complications; J44.9 Chronic obstructive pulmonary disease, unspecified; E78.5 Hyperlipidemia, unspecified; Z90.89 Acquired absence of other organs; Z90.49 Acquired absence of other specified parts of digestive tract; Z90.710 Acquired absence of both cervix and uterus; W10.8XXA Fall (on) (from) other stairs and steps, initial encounter; Y93.89 Activity, other specified; Y92.098 Other place in other non-institutional residence as the place of occurrence of the external cause; Y99.8 Other external cause status
CPT/HCPCS: 72050; 72072; 99283